=== PATIENT | female | born 1940 | race Caucasian/White ===

== ENCOUNTER 2019-06-01 17:42 | Emergency (ER) | payer OTHER ==
[~2019-06-01] VITALS: Ht 157.5 cm; Wt 56.7 kg
[~2019-06-01 17:42] MED LIST: ADVAIR HFA115 MCG/21 INH; ASPIR 8181 MG PO; AUGMENTIN 500-1 EACH PO; EPIPEN0.3 MG/0.1 IJ; FISH OIL 1,001000 M2 PO; FLAXSEED340 GM PO; FLEXERIL PO; HYDROCHLOROTHIA25 M2 PO; HYDROXYZINE HCL25 M1 PO; LEVOTHYROXIN0.175 MG PO; MAXZIDE-25 MG1 EACH PO; MEDROLDOSEPACK PO; NEXIUM40 MG PO; PREDNISONE 10 M10 M1 PO; SINGULAIR 10 MG10 M1 PO; UNICOMPLEX M TA1 TA1 PO; VERAPAMIL ER100 MG PO; VITAMIN D1000 UNI1 PO
[2019-06-01] MEDS ORDERED: PRILOSEC10 MG PO (17:48)
[2019-06-01] MEDS ORDERED: COZAAR 25 MG TA25 M1 PO (17:48)
[2019-06-01] MEDS ORDERED: FOLIC ACID1 MG PO (17:48)
[2019-06-01] MEDS ORDERED: HYDROXYCHLOROQ200 M1 PO (17:48)
[2019-06-01 18:15] LABS: ABSOLUTE EOSINOPHILS 0.1 thou/uL (0.0-0.7); ABSOLUTE LYMPHOCYTES 1.2 thou/uL (0.8-5.3); ABSOLUTE MONOCYTES 0.5 thou/uL (0.0-1.2); ABSOLUTE NEUTROPHILS 2.7 thou/uL (1.6-8.1); EOSINOPHILS 3.1 %; HEMATOCRIT 41.9 % (37.0-47.0); HEMOGLOBIN 14.2 gm/dL (12.0-15.0); LYMPHOCYTES 25.8 %; MCH 31.8 pg (26.0-34.0); MCV 93.7 fL (80.0-100.0); MONOCYTES 11.6 %; MPV 8.9 fl. (7.2-11.1); NUCLEATED RBCS 0 /100WBC; PLATELET COUNT* 200 thou/uL (150-400); POLYS 58.5 %; RBC 4.47 mil/uL (4.20-5.00); RDW-CV 13.9 % (10.5-14.5); WBC 4.6 thou/uL (4.0-11.0)
[2019-06-01 18:26] LABS: ANION GAP 9 mmol/L (7-16); BUN 13 mg/dL (7-18); CALCIUM 8.7 mg/dL (8.5-10.1); CHLORIDE 101 mmol/L (98-107); CO2 27 mmol/L (21-32); CREATININE 0.9 mg/dL (0.6-1.3); GLUCOSE 128 mg/dL (70-99); POTASSIUM 3.9 mmol/L (3.5-5.1); SODIUM 137 mmol/L (136-145)
[2019-06-01 18:37] LABS: ALBUMIN 3.7 g/dL (3.4-5.0); ALKALINE PHOSPHATASE 96 U/L (46-116); LIPASE 143 U/L (73-393); MAGNESIUM 2.1 mg/dL (1.8-2.4); NT-PRO BRAIN NAT PEPTIDE 140 pg/mL (<300); SGOT 20 U/L (15-37); SGPT 31 U/L (30-65); TOTAL BILIRUBIN 0.4 mg/dL (<0.1-1.0); TOTAL PROTEIN 6.6 g/dL (6.4-8.2); TROPONIN-I LEVEL <0.06 ng/mL (<0.06)
[2019-06-01 19:29] VITALS: BP 175/84
--- NOTE | 2019-06-02 11:48 | EKG ---
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 : [id number] Requested By: Campbell Jara Order Number: [id number] MD: Guanakito Oliva Measurements Intervals [place] Rate: 88 P: 54 IN: 203 QRS: -44 QRSD: 89 T: 24 QT: 382 QTc: 463 Interpretive Statements Sinus rhythm Left anterior fascicular block Borderline low voltage, extremity leads Abnormal R-wave progression, late transition Compared to ECG 03/08/2015 10:26:25 No significant change Electronically Signed On 06-02-2019 11:48:33 CDT by Guanakito Oliva [email or web address] <ELECTRONICALLY SIGNED> By: Guanakito Oliva MD, [facility] 06/02/19 [id number] [id number] 1748 Guanakito Oliva MD, [facility] /EPI
== END 2019-06-01 19:30 | disposition home or self-care (01) ==
LOC: M.ERS 17:42
PROVIDERS: Emergency Medicine Emergency Medical Services
DX: R07.89 Other chest pain (principal); I10 Essential (primary) hypertension; E03.9 Hypothyroidism, unspecified; K21.9 Gastro-esophageal reflux disease without esophagitis; J45.909 Unspecified asthma, uncomplicated; M35.00 Sjogren syndrome, unspecified; Z88.8 Allergy status to other drugs, medicaments and biological substances

== ENCOUNTER 2019-06-03 12:52 | Emergency (ER) | payer OTHER ==
[~2019-06-03] VITALS: Ht 157.5 cm; Wt 56.7 kg
[~2019-06-03 12:52] MED LIST changes: +COZAAR 25 MG TA25 M1 PO; +FOLIC ACID1 MG PO; +HYDROXYCHLOROQ200 M1 PO; +PRILOSEC10 MG PO
[2019-06-03] MEDS ORDERED: DIFLUCAN150 M1 PO (14:04)
[2019-06-03] MEDS ORDERED: VERAPAMIL ER240 M1 PO (14:04)
[2019-06-03 14:20] VITALS: BP 198/95
== END 2019-06-03 14:20 | disposition home or self-care (01) ==
LOC: M.ERS 12:52
DX: B37.0 Candidal stomatitis (principal); M35.00 Sjogren syndrome, unspecified; I10 Essential (primary) hypertension; J45.909 Unspecified asthma, uncomplicated; E03.9 Hypothyroidism, unspecified; K21.9 Gastro-esophageal reflux disease without esophagitis; Z88.3 Allergy status to other anti-infective agents